=== PATIENT | female | born 1935 | race American Indian/Alaskan Native ===

== ENCOUNTER 2021-12-05 08:50 | Emergency (ER) | payer MEDICARE ==
[2021-12-05] MEDS ORDERED: TETANUS,DIPH,PERTUSS(ACELL) VACCINE 0.5 ML SYRINGE IM ONE (09:12)
[2021-12-05] MEDS ORDERED: ACETAMINOPHEN 500 MG TAB PO ONE (09:12)
--- NOTE | 2021-12-05 09:14 | Emergency Department Report ---
ED General Adult HPI - General Chief complaint: Wound/Laceration Stated complaint: HEAD PAIN Time Seen by Provider: 12/05/21 08:53 Source: patient, EMS (Verbal report received from emergency medical services. EMS documentation not available at time of chart dictation ), RN notes reviewed, old records reviewed Mode of arrival: Stretcher Limitations: No Limitations - History of Present Illness Initial comments: The patient is a pleasant and cooperative 86-year-old female, who is referred to the emergency room by her outpatient jail, with an EMS articulated complaint of mechanical fall from a wheelchair to the back of her head. The patient complains of left-sided head pain. She denies additional injuries and complaints. Her primary care doctor is Dr. Galen Lancaster. Her past medical history includes constipation, hypertension, insomnia, breast neoplasm, type 2 diabetes, congestive heart failure, hyperlipidemia, major depressive disorder, vascular dementia. -: Sudden Location: head Radiation: non-radiation Severity scale (0 -10): 5 Improves with: none Worsens with: none Associated Symptoms: denies other symptoms - Related Data Allergies Allergy/AdvReac Type Severity Reaction Status Date / Time tramadol Allergy Itching Verified 12/05/21 08:53 ED Review of Systems ROS: Stated complaint: HEAD PAIN Other details as noted in HPI Comment: All other systems reviewed and negative Skin: other (Ecchymosis to scalp) Neurological: headache ED Past Medical Hx - Past Medical History Hx Hypertension: Yes Hx Diabetes: Yes Hx Psychiatric Treatment: Yes Hx Dementia: Yes Additional medical history: hyperlipidemia, breast neoplasm - Social History Smoking Status: Never Smoker Substance Use Type: None ED Physical Exam - General Limitations: No Limitations General appearance: alert, in no apparent distress - Head Head exam: Present: normocephalic, other (There is a scalp ecchymosis noted in the mid occipital) - Eye Eye exam: Present: normal appearance, EOMI. Absent: nystagmus - ENT ENT exam: Present: normal exam, normal orophraynx, mucous membranes moist, normal external ear exam - Neck Neck exam: Present: normal inspection, full ROM. Absent: tenderness, meningismus - Respiratory Respiratory exam: Present: normal lung sounds bilaterally. Absent: respiratory distress, wheezes, rales, rhonchi, stridor, decreased breath sounds - Cardiovascular Cardiovascular Exam: Present: regular rate, normal rhythm, normal heart sounds. Absent: bradycardia, tachycardia, irregular rhythm, systolic murmur, diastolic murmur, rubs, gallop - GI/Abdominal GI/Abdominal exam: Present: soft. Absent: distended, tenderness, guarding, rebound, rigid, pulsatile mass - Extremities Exam Extremities exam: Present: normal inspection, full ROM, other (2+ pulses noted in the bilateral upper and lower extremities. There is no palpable cord. negative Homans sign. Muscular compartments are soft. The pelvis is stable.). Absent: calf tenderness - Back Exam Back exam: Present: normal inspection. Absent: tenderness, CVA tenderness (R), CVA tenderness (L), paraspinal tenderness, vertebral tenderness - Neurological Exam Neurological exam: Present: alert, other (No facial droop. Tongue midline. Extraocular movements intact bilaterally. Facial sensation intact to light touch in V1, V2, V3 distribution bilaterally. 5 and a 5 strength in 4 extremities. Sensation intact to light touch in 4 extremities.) - Psychiatric Psychiatric exam: Present: normal affect, normal mood - Skin Skin exam: Present: warm, dry, intact, normal color, ecchymosis (Scalp ecchymosis). Absent: rash ED Course Vital Signs 12/05/21 12/05/21 08:54 09:24 Temperature 97.6 F 98.7 F Pulse Rate 84 80 Respiratory 20 14 Rate Blood Pressure 149/54 138/86 [Left] O2 Sat by Pulse 96 100 Oximetry - Reevaluation(s) Reevaluation #1: 12/05/21 09:31 Differential diagnosis, including but not limited to: Concussion, closed head injury, intracranial injury, intracranial bleed, skull fracture Assessment and plan: 86-year-old female, who is pleasant and cooperative, awake and alert, moving 4 extremities, with no acute distress, presenting with a primary complaint of occipital scalp injury for mechanical fall. No midline spinal tenderness or step-offs, neurologically intact. CT scan of the brain shows no acute findings. Patient specifically denies all the symptoms, including chest pain abdominal pain, shortness of breath and urinary symptoms. She is given a tetanus vaccination for her scalp abrasion. She does not appear to have an emergent medical condition present at this time. She may be discharged back to her jail. ED Medical Decision Making - Lab Data Vital Signs 12/05/21 12/05/21 08:54 09:24 Temperature 97.6 F 98.7 F Pulse Rate 84 80 Respiratory 20 14 Rate Blood Pressure 149/54 138/86 [Left] O2 Sat by Pulse 96 100 Oximetry - Radiology Data Radiology results: report reviewed, image reviewed interpreted by me: Noncontrast CT scan of the brain, interpreted by myself, demonstrates no obvious bleeding or skull fractures. NONENHANCED CT SCAN OF THE HEAD: INDICATION / CLINICAL INFORMATION: 86 years Female; fall closed head injury. TECHNIQUE: Routine CT head without contrast. All CT scans at this location are performed using CT dose reduction for ALARA by means of automated exposure control. COMPARISON: None. FINDINGS: BRAIN / INTRACRANIAL CONTENTS: No intracranial sequela from the trauma; focal left posterior parietal scalp hematoma; no fluid level in the paranasal sinuses ; No acute hemorrhage, mass effect, midline shift, hydrocephalus, or acute, large territorial infarct. Confluent periventricular low-attenuation areas seen due to chronic small vessel disease. Lateral ventricles and third ventricle are prominent, disproportionate to high convexity cortical sulci. Both temporal horn tips are also dilated. No CT findings to suggest NPH (crowding of the vertex cortical sulci, diffusely enlarged subarachnoid space hydrocephalus and increased callosal angle). Ventriculomegaly is probably due to deep central involution. CRANIOCERVICAL JUNCTION: No significant abnormality. ORBITS: No significant abnormality of visualized orbits. SINUSES / MASTOIDS: No significant abnormality of the visualized paranasal sinuses or mastoid air cells. ADDITIONAL FINDINGS: None. IMPRESSION: No intracranial sequela from the trauma Ventriculomegaly probably due to deep central involution Signer Name: Zelda Tobin MD Signed: 12/05/2021 8:49 AM Workstation Name: [id number] Critical care attestation.: If time is entered above; I have spent that time in minutes in the direct care of this critically ill patient, excluding procedure time. ED Disposition Clinical Impression: Closed head injury, Scalp abrasion Disposition: 03 LONG TERM FACILITY Is pt being admited?: No Does the pt Need Aspirin: No Condition: Good Instructions: Head Injury, Adult, [id number] Additional Instructions: Recommend that jail facility and active fall precautions for this patient. Patient may follow-up with her primary care doctor within the next week. The patient may take Tylenol/acetaminophen, 325 mg by mouth, every 4-6 hours as needed for physical pain. Avoid consumption of Motrin, ibuprofen, Naprosyn, Aleve. Avoid contact sports and athletics. CT scan of the brain showed no emergent findings while here in the emergency room, the patient's physical exam was otherwise benign and unremarkable. The patient is not found to have an emergency medical condition present this morning. Please return to the emergency room right away with new pain, worsened pain, migration of pain, projectile vomiting, change in mental status, confusion, inability tolerate liquid feeds, new, worsened or different symptoms not present on the initial emergency room evaluation Referrals: GALEN LANCASTER MD [Staff Physician] - 3-5 Days
--- NOTE | 2021-12-05 09:53 | Cat Scan Report ---
NONENHANCED CT SCAN OF THE HEAD: INDICATION / CLINICAL INFORMATION: 86 years Female; fall closed head injury. TECHNIQUE: Routine CT head without contrast. All CT scans at this location are performed using CT dos e reduction for ALARA by means of automated exposure control. COMPARISON: None. FINDINGS: BRAIN / INTRACRANIAL CONTENTS: No intracranial sequela from the trauma; focal left posterior parietal scalp hematoma; no fluid level in the paranasal sinuses ; No acute hemorrhage, mass effect, midline shift, hydrocephalus, or acute, large territorial infarct . Confluent periventricular low-attenuation areas seen due to chronic small vessel disease. Lateral ventricles and third ventricle are prominent, disproportionate to high convexity cortical sul ci. Both temporal horn tips are also dilated. No CT findings to suggest NPH (crowding of the vertex c ortical sulci, diffusely enlarged subarachnoid space hydrocephalus and increased callosal angle). Ross triculomegaly is probably due to deep central involution. CRANIOCERVICAL JUNCTION: No significant abnormality. ORBITS: No significant abnormality of visualized orbits. SINUSES / MASTOIDS: No significant abnormality of the visualized paranasal sinuses or mastoid air zhanna ls. ADDITIONAL FINDINGS: None. IMPRESSION: No intracranial sequela from the trauma Ventriculomegaly probably due to deep central involution Signer Name: Zelda Tobin MD Signed: 12/05/2021 9:49 AM Workstation Name: [id number]
[2021-12-05 10:36] VITALS: BP 118/80
== END 2021-12-05 10:35 ==
LOC: ED 08:50
DX: S00.03XA Contusion of scalp, initial encounter (principal); I10 Essential (primary) hypertension; E11.9 Type 2 diabetes mellitus without complications; Z88.6 Allergy status to analgesic agent; W18.39XA Other fall on same level, initial encounter; Y93.89 Activity, other specified; Y92.89 Other specified places as the place of occurrence of the external cause; Y99.8 Other external cause status
CPT/HCPCS: 70450; 90471; 90715; 99284